=== PATIENT | male | born 1985 | race Caucasian/White ===

== ENCOUNTER 2023-04-12 06:47 | Inpatient (IN) | payer SELFPAY ==
[2023-04-12] VITALS (7 sets, daily range): BP systolic 93–154; BP diastolic 53–121
[~2023-04-12] VITALS: Ht 177.8 cm; Wt 103.9 kg
[2023-04-12] MEDS ORDERED: LOSARTAN POTASS50 M1 PO (07:23)
[2023-04-12] MEDS ORDERED: PHENTERMINE H37.5 M1 PO (07:26)
[2023-04-12 08:14] LABS: MEAN CORPUSCULAR HGB 29.1 pg (27.0-31.0); MEAN CORPUSCULAR HGB CONC 33.5 g/dl (33.0-37.0); MEAN PLATELET VOLUME 10.4 fl (9.6-12.3); PLATELET COUNT AUTOMATED 244 10*3/uL (130-400); WHITE BLOOD COUNT 24.3 10*3/uL (4.8-10.8)
[2023-04-12 08:20] LABS: MANUAL DIFF REFLEX YES
[2023-04-12 08:32] LABS: POTASSIUM 3.4 mmol/L (3.4-5.1); TOTAL PROTEIN 7.2 gm/dL (6.0-8.0)
[2023-04-12 08:35] LABS: TOTAL CELLS COUNTED 100 #CELLS
[2023-04-12 08:36] LABS: BURR CELLS FEW; DOHLE BODIES FEW; PLATELET SUFFICIENCY NORMAL (NORMAL); POLYCHROMASIA SLIGHT; TOXIC GRANULATION SLIGHT; VACUOLATION OF NEUTROPHILS SLIGHT
[2023-04-12 15:07] LABS: BILIRUBIN Negative (Negative); BLOOD 2+ (Negative); CLARITY Cloudy (Clear); COLOR Dark Yellow (Yellow); GLUCOSE Negative (Negative); KETONE Negative (Negative); LEUKO ESTERASE 3+ (Negative); NITRITE Negative (Negative); PH 5.5 (4.5-8.0); SPECIFIC GRAVITY 1.015 (1.001-1.030)
[2023-04-12 15:22] LABS: BACTERIA 2+; RBC 21-30 rbc/hpf (0-2); WBC 41-50 wbc/hpf (0-5)
[2023-04-13] VITALS: BP 117/59; BP 160/68
[2023-04-13 06:53] LABS: BASO % 0.3 % (0.0-1.0); EOS % 0.1 % (1.0-4.0); HEMATOCRIT 36.8 % (42.0-52.0); LYMPH # 0.9 10*3/uL (1.3-4.4); LYMPH % 8.2 % (27.0-41.0); MEAN CELL VOLUME 90.9 fl (80.0-94.0); MEAN CORPUSCULAR HGB 30.4 pg (27.0-31.0); MEAN CORPUSCULAR HGB CONC 33.4 g/dl (33.0-37.0); MONO % 8.9 % (3.0-9.0); NEUT # 8.6 10*3/uL (2.3-7.9); NEUT % 80.1 % (47.0-73.0); PLATELET COUNT AUTOMATED 200 10*3/uL (130-400); RED BLOOD COUNT 4.05 10*6/uL (4.50-5.90); RED CELL DISTRI WIDTH 13.2 % (0-14.5); WHITE BLOOD COUNT 10.8 10*3/uL (4.8-10.8)
[2023-04-13 07:13] LABS: ALKALINE PHOSPHATASE 59 U/L (46-116); BUN 21 mg/dl (9-23); CHLORIDE 104 mmol/L (98-107); CHOLESTEROL 106 mg/dL (<200); POTASSIUM 3.7 mmol/L (3.4-5.1); SGPT/ALT 19 U/L (10-49); THYROID STIM HORMONE (HS) 0.493 uIU/ml (0.550-4.780); TOTAL PROTEIN 6.1 gm/dL (6.0-8.0); TRIGLYCERIDES 360 mg/dl (<150)
[2023-04-13 07:34] LABS: LDL CHOLESTEROL 28 mg/dL (9-159)
[2023-04-13 08:00] VITALS: BP 119/67
[2023-04-13 12:00] VITALS: BP 102/64
[2023-04-13 16:00] VITALS: BP 133/75
[2023-04-13 20:00] VITALS: BP 119/77
[2023-04-14] VITALS: BP 123/79
[2023-04-14 06:08] LABS: BASO % 0.4 % (0.0-1.0); EOS % 0.5 % (1.0-4.0); HEMATOCRIT 37.4 % (42.0-52.0); LYMPH # 0.9 10*3/uL (1.3-4.4); LYMPH % 11.1 % (27.0-41.0); MEAN CORPUSCULAR HGB 29.3 pg (27.0-31.0); MEAN CORPUSCULAR HGB CONC 32.9 g/dl (33.0-37.0); MEAN PLATELET VOLUME 10.7 fl (9.6-12.3); MONO # 1.1 10*3/uL (0.1-1.0); MONO % 14.1 % (3.0-9.0); NEUT # 5.7 10*3/uL (2.3-7.9); NEUT % 73.6 % (47.0-73.0); PLATELET COUNT AUTOMATED 204 10*3/uL (130-400); RED CELL DISTRI WIDTH 13.2 % (0-14.5); WHITE BLOOD COUNT 7.8 10*3/uL (4.8-10.8)
[2023-04-14 06:30] LABS: BUN 17 mg/dl (9-23); CHLORIDE 104 mmol/L (98-107); POTASSIUM 3.5 mmol/L (3.4-5.1)
[2023-04-14 08:00] VITALS: BP 130/80
[2023-04-14 12:00] VITALS: BP 134/70
[2023-04-14 16:00] VITALS: BP 124/71
[2023-04-14 20:00] VITALS: BP 124/73
[2023-04-15] VITALS: BP 120/69
[2023-04-15 06:24] LABS: BUN 13 mg/dl (9-23); CHLORIDE 100 mmol/L (98-107)
[2023-04-15 06:42] LABS: BASO % 0.4 % (0.0-1.0); EOS # 0.1 10*3/uL (0.0-0.4); EOS % 0.7 % (1.0-4.0); HEMATOCRIT 38.6 % (42.0-52.0); LYMPH # 1.6 10*3/uL (1.3-4.4); LYMPH % 17.8 % (27.0-41.0); MEAN CELL VOLUME 87.3 fl (80.0-94.0); MEAN CORPUSCULAR HGB 28.7 pg (27.0-31.0); MEAN CORPUSCULAR HGB CONC 32.9 g/dl (33.0-37.0); MEAN PLATELET VOLUME 10.7 fl (9.6-12.3); MONO # 1.1 10*3/uL (0.1-1.0); MONO % 12.5 % (3.0-9.0); NEUT # 6.2 10*3/uL (2.3-7.9); NEUT % 67.9 % (47.0-73.0); RED BLOOD COUNT 4.42 10*6/uL (4.50-5.90); RED CELL DISTRI WIDTH 13.2 % (0-14.5); WHITE BLOOD COUNT 9.1 10*3/uL (4.8-10.8)
[2023-04-15 06:45] LABS: PLATELET COUNT AUTOMATED 284 10*3/uL (130-400)
[2023-04-15 08:00] VITALS: BP 141/80
[2023-04-15] MEDS ORDERED: LEVOFLOXACIN750 M2 PO (10:21)
[2023-04-15] MEDS ORDERED: VITAMIN D350 MCG PO (10:21)
== END 2023-04-15 12:04 | disposition home or self-care (01) | DRG 871 ==
LOC: ED 06:47 → 4E 09:29 → EDHOLD 09:29 → 4E 09:37
PROVIDERS: Emergency Medicine; Internal Medicine; Student in an Organized Health Care Education/Training Program; ADMIT Internal Medicine; ATTEND Internal Medicine
DX: A41.9 Sepsis, unspecified organism (principal); N17.0 Acute kidney failure with tubular necrosis; E87.1 Hypo-osmolality and hyponatremia; E44.0 Moderate protein-calorie malnutrition; N39.0 Urinary tract infection, site not specified; N10 Acute pyelonephritis; I95.9 Hypotension, unspecified; D64.9 Anemia, unspecified; E83.42 Hypomagnesemia; R73.9 Hyperglycemia, unspecified; E80.6 Other disorders of bilirubin metabolism; K57.30 Diverticulosis of large intestine without perforation or abscess without bleeding; N20.0 Calculus of kidney; I10 Essential (primary) hypertension; Z79.899 Other long term (current) drug therapy; Z68.32 Body mass index [BMI] 32.0-32.9, adult